=== PATIENT | female | born 1975 | race Caucasian/White ===

== ENCOUNTER 2019-02-20 14:38 | Emergency (ER) | payer MEDICAID ==
[2019-02-20] MEDS ORDERED: Sodium Chloride 0.9% 1,000 ML IV ONE (14:46)
[2019-02-20] MEDS ORDERED: Ondansetron 4 MG/2 ML SDV IVPUSH ONE (14:46)
--- NOTE | 2019-02-20 14:52 | EDM.PDOC ---
ED HPI GENERAL MEDICAL PROBLEM - General Stated Complaint: STOMACH PAIN Time Seen by Provider: 02/20/19 14:43 - History of Present Illness INITIAL COMMENTS - FREE TEXT/NARRATIVE: HISTORY AND PHYSICAL: History of present illness: Patient is a 44-year-old white female presents with right-sided abdominal pain that started yesterday this pain with associated nausea she describes as a cramping type pain occasionally sharp no vaginal discharge or irregular bleeding patient has had no fever chills diarrhea chest pain shortness of breath or other concern she denies trauma Review of systems: As per history of present illness and below otherwise all systems reviewed and negative. Past medical history: As per history of present illness and as reviewed below otherwise noncontributory. Surgical history: As per history of present illness and as reviewed below otherwise noncontributory. Social history: No reported history of drug or alcohol abuse. Family history: As per history of present illness and as reviewed below otherwise noncontributory. Physical exam: HEENT: Atraumatic, normocephalic, pupils reactive, negative for conjunctival pallor or scleral icterus, mucous membranes moist, throat clear, neck supple, nontender, trachea midline. Lungs: Clear to auscultation, breath sounds equal bilaterally, chest nontender. Heart: S1S2, regular, negative for clicks, rubs, or JVD. Abdomen: Soft, tenderness noted right sided nonlocalized no rebound no guarding Negative for masses or hepatosplenomegaly. Negative for costovertebral tenderness. Pelvis: Stable nontender. Genitourinary: Deferred. Rectal: Deferred. Extremities: Atraumatic, negative for cords or calf pain. Neurovascular unremarkable. Neuro: Awake, alert, oriented. Cranial nerves II through XII unremarkable. Cerebellum unremarkable. Motor and sensory unremarkable throughout. Exam nonfocal. Diagnostics: CBC CMP UA CT abdomen and pelvis Therapeutics: Saline 1 L bolus Zofran 4 mg IV Toradol 30 mg Impression: #1 right-sided abdominal pain Definitive disposition and diagnosis as appropriate pending reevaluation and review of above. - Related Data Allergies Allergy/AdvReac Type Severity Reaction Status Date / Time bupropion [From Wellbutrin] Allergy Other Verified 02/20/19 15:22 paroxetine [From Paxil] Allergy Other Verified 02/20/19 15:22 tramadol Allergy Diarrhea Verified 02/20/19 15:22 Home Meds: Home Meds ClonazePAM [KlonoPIN] 2 mg PO DAILY 06/09/18 [History] Cyclobenzaprine [Flexeril] 1 tab PO DAILY PRN 06/09/18 [History] Losartan [Cozaar] 12.5 mg PO DAILY 06/09/18 [History] Metoprolol Succinate [Toprol XL] 25 mg PO DAILY 06/09/18 [History] atorvaSTATin [Lipitor] 40 mg PO DAILY 06/09/18 [History] Hydrocodone/Acetaminophen [Hydrocodon-Acetaminophn 10-325] 1 tab PO Q6H PRN [History] Past Medical History Cardiovascular History: Reports: High Cholesterol, Hypertension, [place] Respiratory History: 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: 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: Neurological History: Reports: Migraines Psychiatric History: Reports: Addiction, Anxiety Endocrine/Metabolic History: Reports: Diabetes, Type II - Infectious Disease History Infectious Disease History: Reports: Hepatitis C - Past Surgical History Cardiovascular Surgical History: Reports: Carotid Stents GI Surgical History: Reports: Cholecystectomy Female Surgical History: Reports: Hysterectomy Social & Family History - Family History Family Medical History: Noncontributory - Caffeine Use Caffeine Use: Reports: Soda ED ROS GENERAL - Review of Systems Review Of Systems: ROS reveals no pertinent complaints other than HPI. ED EXAM, GENERAL - Physical Exam Exam: See Below (See dictation) Course - Vital Signs Last Recorded V/S: Last Vital Signs Temp 36.9 C 02/20/19 15:00 Pulse 86 02/20/19 17:10 Resp 16 02/20/19 17:10 BP 106/54 L 02/20/19 17:10 Pulse Ox 96 02/20/19 17:10 - Orders/Labs/Meds Orders: Active Orders 24 hr Category Date Time Status EKG Documentation Completion [RC] STAT Care 02/20/19 15:12 Active Labs: Laboratory Tests 02/20/19 02/20/19 02/20/19 Range/Units 15:30 15:30 15:55 WBC 7.97 (4.0-11.0) K/uL RBC 5.17 (4.30-5.90) M/uL Hgb 14.7 (12.0-16.0) g/dL Hct 46.9 H (36.0-46.0) % MCV 90.7 (80.0-98.0) fL MCH 28.4 (27.0-32.0) pg MCHC 31.3 (31.0-37.0) g/dL RDW Std Deviation 45.6 (28.0-62.0) fl RDW Coeff of Rita 14 (11.0-15.0) % Plt Count 177 (150-400) K/uL MPV 11.80 (7.40-12.00) fL Neut % (Auto) 60.4 (48.0-80.0) % Lymph % (Auto) 26.0 (16.0-40.0) % [place] % (Auto) 9.2 (0.0-15.0) % Eos % (Auto) 4.3 (0.0-7.0) % Baso % (Auto) 0.1 (0.0-1.5) % Neut # (Auto) 4.8 (1.4-5.7) K/uL Lymph # (Auto) 2.1 (0.6-2.4) K/uL [place] # (Auto) 0.7 (0.0-0.8) K/uL Eos # (Auto) 0.3 (0.0-0.7) K/uL Baso # (Auto) 0.0 (0.0-0.1) K/uL Nucleated RBC % 0.0 /100WBC Nucleated RBCs # 0 K/uL Sodium (136-145) mmol/L Potassium (3.5-5.1) mmol/L Chloride (98-107) mmol/L Carbon Dioxide (21.0-32.0) mmol/L BUN (7.0-18.0) mg/dL Creatinine (0.6-1.0) mg/dL Est Cr Clr Drug Dosing mL/min Estimated GFR (MDRD) ml/min Glucose (74-106) mg/dL Calcium (8.5-10.1) mg/dL Total Bilirubin (0.2-1.0) mg/dL AST (15-37) IU/L ALT (14-63) IU/L Alkaline Phosphatase (46-116) U/L Troponin I (0.000-0.056) ng/mL Total Protein (6.4-8.2) g/dL Albumin (3.4-5.0) g/dL Globulin (2.6-4.0) g/dL Albumin/Globulin Ratio (0.9-1.6) HCG, Qual (NEG) Urine Color YELLOW Urine Appearance CLEAR Urine pH 6.0 (5.0-8.0) Ur Specific [place] <= 1.005 (1.001-1.035) Urine Protein NEGATIVE (NEGATIVE) mg/dL Urine Glucose (UA) NEGATIVE (NEGATIVE) mg/dL Urine Ketones NEGATIVE (NEGATIVE) mg/dL Urine Occult Blood NEGATIVE (NEGATIVE) Urine Nitrite NEGATIVE (NEGATIVE) Urine Bilirubin NEGATIVE (NEGATIVE) Urine Urobilinogen 0.2 (<2.0) EU/dL Ur Leukocyte Esterase NEGATIVE (NEGATIVE) Urine Opiates Screen POSITIVE (NEGATIVE) Ur Oxycodone Screen NEGATIVE (NEGATIVE) Urine Methadone Screen NEGATIVE (NEGATIVE) Ur Barbiturates Screen NEGATIVE (NEGATIVE) Ur Phencyclidine Scrn NEGATIVE (NEGATIVE) Ur Amphetamine Screen NEGATIVE (NEGATIVE) U Methamphetamines Scrn NEGATIVE (NEGATIVE) U Benzodiazepines Scrn NEGATIVE (NEGATIVE) U Cocaine Metab Screen NEGATIVE (NEGATIVE) U Marijuana (THC) Screen NEGATIVE (NEGATIVE) 02/20/19 02/20/19 02/20/19 Range/Units 15:55 15:55 15:55 WBC (4.0-11.0) K/uL RBC (4.30-5.90) M/uL Hgb (12.0-16.0) g/dL Hct (36.0-46.0) % MCV (80.0-98.0) fL MCH (27.0-32.0) pg MCHC (31.0-37.0) g/dL RDW Std Deviation (28.0-62.0) fl RDW Coeff of Rita (11.0-15.0) % Plt Count (150-400) K/uL MPV (7.40-12.00) fL Neut % (Auto) (48.0-80.0) % Lymph % (Auto) (16.0-40.0) % [place] % (Auto) (0.0-15.0) % Eos % (Auto) (0.0-7.0) % Baso % (Auto) (0.0-1.5) % Neut # (Auto) (1.4-5.7) K/uL Lymph # (Auto) (0.6-2.4) K/uL [place] # (Auto) (0.0-0.8) K/uL Eos # (Auto) (0.0-0.7) K/uL Baso # (Auto) (0.0-0.1) K/uL Nucleated RBC % /100WBC Nucleated RBCs # K/uL Sodium 139 (136-145) mmol/L Potassium 4.2 (3.5-5.1) mmol/L Chloride 107 (98-107) mmol/L Carbon Dioxide 23.0 (21.0-32.0) mmol/L BUN 12 (7.0-18.0) mg/dL Creatinine 0.6 (0.6-1.0) mg/dL Est Cr Clr Drug Dosing 113.18 mL/min Estimated GFR (MDRD) > 60.0 ml/min Glucose 107 H (74-106) mg/dL Calcium 8.3 L (8.5-10.1) mg/dL Total Bilirubin 0.2 (0.2-1.0) mg/dL AST 18 (15-37) IU/L ALT 34 (14-63) IU/L Alkaline Phosphatase 136 H (46-116) U/L Troponin I < 0.050 (0.000-0.056) ng/mL Total Protein 6.6 (6.4-8.2) g/dL Albumin 3.2 L (3.4-5.0) g/dL Globulin 3.4 (2.6-4.0) g/dL Albumin/Globulin Ratio 0.9 (0.9-1.6) HCG, Qual NEGATIVE (NEG) Urine Color Urine Appearance Urine pH (5.0-8.0) Ur Specific [place] (1.001-1.035) Urine Protein (NEGATIVE) mg/dL Urine Glucose (UA) (NEGATIVE) mg/dL Urine Ketones (NEGATIVE) mg/dL Urine Occult Blood (NEGATIVE) Urine Nitrite (NEGATIVE) Urine Bilirubin (NEGATIVE) Urine Urobilinogen (<2.0) EU/dL Ur Leukocyte Esterase (NEGATIVE) Urine Opiates Screen (NEGATIVE) Ur Oxycodone Screen (NEGATIVE) Urine Methadone Screen (NEGATIVE) Ur Barbiturates Screen (NEGATIVE) Ur Phencyclidine Scrn (NEGATIVE) Ur Amphetamine Screen (NEGATIVE) U Methamphetamines Scrn (NEGATIVE) U Benzodiazepines Scrn (NEGATIVE) U Cocaine Metab Screen (NEGATIVE) U Marijuana (THC) Screen (NEGATIVE) Meds: Medications Discontinued Medications Generic Name Dose Route Start Last Admin Trade Name Gurmeet PRN Reason Stop Dose Admin Sodium Chloride 1,000 mls @ 999 mls/hr 02/20/19 14:46 02/20/19 16:08 Normal Saline IV 02/20/19 15:46 999 mls/hr STAT ONE Administration Ketorolac Tromethamine 30 mg 02/20/19 15:12 02/20/19 16:08 Toradol IVPUSH 02/20/19 15:13 30 mg ONETIME ONE Administration Ondansetron HCl 4 mg 02/20/19 14:46 02/20/19 16:08 Zofran IVPUSH 02/20/19 14:47 4 mg ONETIME ONE Administration Departure - Departure Time of Disposition: 17:58 Disposition: Home, Self-Care 01 Condition: Good Clinical Impression: Abdominal pain - Discharge Information Referrals: PCP,Unknown [Primary Care Provider] - Additional Instructions: The following information is given to patients seen in the emergency department who are being discharged to home. This information is to outline your options for follow-up care. We provide all patients seen in our emergency department with a follow-up referral. The need for follow-up, as well as the timing and circumstances, are variable depending upon the specifics of your emergency department visit. If you don't have a primary care physician on staff, we will provide you with a referral. We always advise you to contact your personal physician following an emergency department visit to inform them of the circumstance of the visit and for follow-up with them and/or the need for any referrals to a consulting specialist. The emergency department will also refer you to a specialist when appropriate. This referral assures that you have the opportunity for followup care with a specialist. All of these measure are taken in an effort to provide you with optimal care, which includes your followup. Under all circumstances we always encourage you to contact your private physician who remains a resource for coordinating your care. When calling for followup care, please make the office aware that this follow-up is from your recent emergency room visit. If for any reason you are refused follow-up, please contact the [facility] emergency department at and asked to speak to the emergency department charge nurse. [facility] [address] [place] [id number] Protonix as prescribed follow-up primary care above return as needed as discussed - My Orders Last 24 Hours: My Active Orders 02/20/19 15:12 EKG Documentation Completion [RC] STAT - Assessment/Plan Last 24 Hours: My Active Orders 02/20/19 15:12 EKG Documentation Completion [RC] STAT
[2019-02-20] MEDS ORDERED: Ketorolac 30 MG/ML SDV IVPUSH ONE (15:12)
[2019-02-20 16:27] LABS: CHLORIDE,CL 107 mmol/L (98-107); SODIUM,NA 139 mmol/L (136-145)
--- NOTE | 2019-02-20 17:24 | CR ---
HISTORY: Chest pain. FINDINGS: Single AP view of the chest is provided. Comparison is made to previous study dated 06/09/2018. The lungs are clear and there is no evidence for pleural effusion or pneumothorax. Cardiac silhouette size is within normal limits. Dictated by Henry Recio MD @ Feb 20 2019 5:21PM Signed by Dr. Henry Recio @ Feb 20 2019 5:22PM
--- NOTE | 2019-02-20 17:34 | CT ---
INDICATION: Nausea and vomiting with right lower quadrant pain. COMPARISON: [address] TECHNIQUE: Noncontrast images. FINDINGS: Coronary atherosclerotic calcification. Cholecystectomy clips. Multiple nonobstructing calculi in each kidney. Largest at the lower pole on the right roughly 5.5 mm. Majority are 3-4 mm. No obstruction. No mass or cyst. Reactive retroperitoneal lymph nodes along the celiac and gastrohepatic stations. Reactive appearing portacaval lymph nodes. Multiple diverticula of the sigmoid without inflammation. High attenuation within normal caliber appendix with slightly high-riding cecum. No dilatation or inflammation of small bowel. No air or fluid in the peritoneum. Abdominal wall is intact. No inguinal hernias. Urinary bladder is decompressed. No blastic or lytic bone lesion. IMPRESSION: 1. Multiple nonobstructing chronic caliceal nephrolithiasis bilaterally. 2. Chronic sigmoid diverticulosis. 3. Cholecystectomy. Please note that all CT scans at this facility use dose modulation, iterative reconstruction, and/or weight-based dosing when appropriate to reduce radiation dose to as low as reasonably achievable. Dictated by Alex Parker MD @ Feb 20 2019 5:28PM Signed by Dr. Alex Parker @ Feb 20 2019 5:32PM
== END 2019-02-20 18:10 | disposition home or self-care (01) ==
LOC: MW.ED 14:38
DX: R10.31 Right lower quadrant pain (principal); E78.00 Pure hypercholesterolemia, unspecified; I10 Essential (primary) hypertension; I25.2 Old myocardial infarction; F41.9 Anxiety disorder, unspecified; E11.9 Type 2 diabetes mellitus without complications; Z88.8 Allergy status to other drugs, medicaments and biological substances; Z79.899 Other long term (current) drug therapy
CPT/HCPCS: 36415; 71045; 74176; 80053; 80305; 81003; 84484; 84703; 85025; 93005; 96361; 96374; 96375; 99284; J1885; J2405; J7040; 99283

== ENCOUNTER 2019-03-23 21:16 | Emergency (ER) | payer MEDICAID ==
--- NOTE | 2019-03-23 21:23 | EDM.PDOC ---
ED HPI GENERAL MEDICAL PROBLEM - General Chief Complaint: General Stated Complaint: MED. CANALES Time Seen by Provider: 03/23/19 21:18 Source of Information: Reports: Patient History Limitations: Reports: No Limitations - History of Present Illness INITIAL COMMENTS - FREE TEXT/NARRATIVE: HISTORY AND PHYSICAL: History of present illness: Patient is a 44-year-old female who presents to the emergency room for medical clearance by law enforcement. Patient offers no current complaints or concerns. Patient denies any fever, chills, headache, change in vision, syncope or near syncope. Denies any chest pain, back pain, shortness of breath or cough. Denies any abdominal pain, nausea, vomiting, diarrhea, constipation or dysuria. Has not noted any blood in urine or stool. Patient has been eating and drinking appropriately. Review of systems: As per history of present illness and below otherwise all systems reviewed and negative. Past medical history: As per history of present illness and as reviewed below otherwise noncontributory. Surgical history: As per history of present illness and as reviewed below otherwise noncontributory. Social history: See social history for further information Family history: As per history of present illness and as reviewed below otherwise noncontributory. Physical exam: General: Well-developed and well-nourished 44-year-old female. Alert and oriented. Nontoxic appearing and in no acute distress. HEENT: Atraumatic, normocephalic, pupils equal and reactive bilaterally, negative for conjunctival pallor or scleral icterus, mucous membranes moist, neck supple, nontender, trachea midline. No drooling or trismus noted. No meningeal signs. No hot potato voice noted. Lungs: Clear to auscultation, breath sounds equal bilaterally, chest nontender. Heart: S1S2, regular rate and rhythm without overt murmur Abdomen: Soft, nondistended, nontender. Skin: Intact, warm, dry. No lesions or rashes noted. Extremities: Atraumatic, moves all extremities per self without difficulty or deficits, negative for cords or calf pain. Neurovascular unremarkable. Neuro: Awake, alert, oriented. Cranial nerves II through XII unremarkable. Cerebellum unremarkable. Motor and sensory unremarkable throughout. Exam nonfocal. Notes: Patient states she does have a cardiac history and has seen Dr. Duggan for routine check up which included an EKG on 03/05/19. I was able to view this EKG which appeared to have no acute findings. Patient's vital signs are stable. She declines the need for any diagnostics. We'll discharged into the custody of law enforcement. Supportive care measures were reviewed and discussed. Voices understanding and is agreeable to plan of care. Denies any further questions or concerns at this time. Diagnostics: None Therapeutics: None Prescription: None Impression: Encounter for medical screening exam Plan: 1. Follow-up with your primary care provider as we discussed. 2. Return to the ED as needed and as discussed. Definitive disposition and diagnosis as appropriate pending reevaluation and review of above. - Related Data Allergies Allergy/AdvReac Type Severity Reaction Status Date / Time bupropion [From Wellbutrin] Allergy Other Verified 03/23/19 21:19 paroxetine [From Paxil] Allergy Other Verified 03/23/19 21:19 tramadol Allergy Diarrhea Verified 03/23/19 21:19 Home Meds: Home Meds ClonazePAM [KlonoPIN] 2 mg PO DAILY 06/09/18 [History] Cyclobenzaprine [Flexeril] 1 tab PO DAILY PRN 06/09/18 [History] Losartan [Cozaar] 12.5 mg PO DAILY 06/09/18 [History] Metoprolol Succinate [Toprol XL] 25 mg PO DAILY 06/09/18 [History] atorvaSTATin [Lipitor] 40 mg PO DAILY 06/09/18 [History] Hydrocodone/Acetaminophen [Hydrocodon-Acetaminophn 10-325] 1 tab PO Q6H PRN [History] Clopidogrel [Plavix] 75 mg PO 03/23/19 [History] Past Medical History Cardiovascular History: Reports: High Cholesterol, Hypertension, [place] 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: Neurological History: Reports: Migraines Psychiatric History: Reports: Addiction, Anxiety Endocrine/Metabolic History: Reports: Diabetes, Type II - Infectious Disease History Infectious Disease History: Reports: Hepatitis C - Past Surgical History Cardiovascular Surgical History: Reports: Carotid Stents GI Surgical History: Reports: Cholecystectomy Female Surgical History: Reports: Hysterectomy Social & Family History - Family History Family Medical History: Noncontributory - Caffeine Use Caffeine Use: Reports: Soda ED ROS GENERAL - Review of Systems Review Of Systems: ROS reveals no pertinent complaints other than HPI. ED EXAM, GENERAL - Physical Exam Exam: See Below (See dictation) Course - Vital Signs Last Recorded V/S: Last Vital Signs Temp 97.6 F 03/23/19 21:20 Pulse 89 03/23/19 21:20 Resp 18 03/23/19 21:20 BP 138/85 03/23/19 21:20 Pulse Ox 97 03/23/19 21:20 Departure - Departure Time of Disposition: 21:25 Disposition: Home, Self-Care 01 Clinical Impression: Encounter for medical screening examination - Discharge Information Referrals: PCP,None [Primary Care Provider] - Forms: ED Department Discharge Additional Instructions: The following information is given to patients seen in the emergency department who are being discharged to home. This information is to outline your options for follow-up care. We provide all patients seen in our emergency department with a follow-up referral. The need for follow-up, as well as the timing and circumstances, are variable depending upon the specifics of your emergency department visit. If you don't have a primary care physician on staff, we will provide you with a referral. We always advise you to contact your personal physician following an emergency department visit to inform them of the circumstance of the visit and for follow-up with them and/or the need for any referrals to a consulting specialist. The emergency department will also refer you to a specialist when appropriate. This referral assures that you have the opportunity for follow-up care with a specialist. All of these measure are taken in an effort to provide you with optimal care, which includes your follow-up. Under all circumstances we always encourage you to contact your private physician who remains a resource for coordinating your care. When calling for follow-up care, please make the office aware that this follow-up is from your recent emergency room visit. If for any reason you are refused follow-up, please contact the [facility] Emergency Department at and asked to speak to the emergency department charge nurse. [facility] [address] [place] [id number] [id number] 1. Follow-up with your primary care provider as we discussed. 2. Return to the ED as needed and as discussed.
== END 2019-03-23 21:34 | disposition home or self-care (01) ==
LOC: MW.ED 21:16
DX: Z13.9 Encounter for screening, unspecified (principal); E78.00 Pure hypercholesterolemia, unspecified; I10 Essential (primary) hypertension; I25.2 Old myocardial infarction; E11.9 Type 2 diabetes mellitus without complications; Z88.8 Allergy status to other drugs, medicaments and biological substances; Z88.5 Allergy status to narcotic agent; Z79.899 Other long term (current) drug therapy; Z79.02 Long term (current) use of antithrombotics/antiplatelets
CPT/HCPCS: 99283

== ENCOUNTER 2019-04-15 07:24 | Day surgery (SDC) | payer MEDICAID ==
[~2019-04-15 07:24] MED LIST: Lactated Ringers 1,000 ML IV SCH; Midazolam 1 MG/ML 2 ML SDV ONE; Ondansetron 4 MG/2 ML SDV ONE; Propofol 200 MG/20 ML SDV ONE; Sodium Chloride 0.9% 10 ML SDV IV PRN; Sodium Chloride 0.9% 10 ML Syringe FLUSH PRN; Sodium Chloride 0.9% 2.5 ML Syringe FLUSH PRN; ceFAZolin 2 GM in Premix Bag 1 BAG IV ONE; fentaNYL 100 MCG/2 ML SDV ONE
--- NOTE | 2019-04-15 08:28 | PCM.PREANE ---
Preanesthetic Assessment - Anesthesia/Transfusion/Family Hx Anesthesia History: Prior Anesthesia Without Reaction Family History of Anesthesia Reaction: No Transfusion History: No Prior Transfusion(s) - Review of Systems General: No Symptoms Pulmonary: No Symptoms Cardiovascular: No Symptoms Gastrointestinal: No Symptoms Neurological: No Symptoms Other: Reports: None - Physical Assessment NPO Status Date: 04/14/19 NPO Status Time: 23:00 Vital Signs: Last Vital Signs Temp 97.2 F 04/15/19 07:53 Pulse 84 04/15/19 07:53 Resp 16 04/15/19 07:53 BP 128/73 04/15/19 07:53 Pulse Ox 97 04/15/19 07:53 Height: 5 ft 6 in Weight: 97.976 kg ASA Class: 3 Mental Status: Alert & Oriented x3 Airway Class: Mallampati = 2 Dentition: Reports: Partial (lower), Edentulous (uper) ROM/Head Extension: Full Lungs: Clear to Auscultation, Normal Respiratory Effort Cardiovascular: Regular Rate, Regular Rhythm - Allergies Allergies/Adverse Reactions: Allergies Allergy/AdvReac Type Severity Reaction Status Date / Time adhesive tape Allergy Blisters Verified 04/12/19 11:36 bupropion [From Wellbutrin] Allergy mood swings Verified 04/12/19 11:45 paroxetine [From Paxil] Allergy mood swings Verified 04/12/19 11:45 tramadol Allergy Diarrhea Verified 04/12/19 11:45 - Blood Blood Available: No - Anesthesia Plan Pre-Op Medication Ordered: None - Acknowledgements Anesthesia Type Planned: General Anesthesia Pt an Appropriate Candidate for the Planned Anesthesia: Yes Alternatives and Risks of Anesthesia Discussed w Pt/Guardian: Yes Pt/Guardian Understands and Agrees with Anesthesia Plan: Yes Additional Comments: PMH cad with AL in 2012, has 3 stents in RCA and Cx, on plavix, last dose 4 days ago DM2 diet controlled chrons- in remission- on mo meds copd/asthma- used inhaler yest for sx, no hosp visits or steroid use in 10 yrs smoker hep C - untreated- set up for rx in [place] htn s/p hyst hx of stimulant use disorder in sustained remission for 18 months PLAN: tiva or ga/lma PreAnesthesia Questionnaire HEENT History: Reports: None Cardiovascular History: Reports: High Cholesterol, Hypertension, AL Respiratory History: Reports: Asthma, COPD Gastrointestinal History: Reports: Hepatitis Other Gastrointestinal History: hepatitis C, states is going to [place] on to see a doctor about treatment for Hep C Genitourinary History: Reports: Renal Calculus 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: Musculoskeletal History: Reports: Fracture Other Musculoskeletal History: hx fx shoulder Neurological History: Reports: Migraines Psychiatric History: Reports: Addiction, Anxiety, Depression Endocrine/Metabolic History: Reports: Diabetes, Type II, Obesity/BMI 30+ Other Endocrine/Metabolic History: diet controlled type II diabetes Hematologic History: Reports: None Immunologic History: Reports: None Oncologic (Cancer) History: Reports: None Dermatologic History: Reports: None - Infectious Disease History Infectious Disease History: Reports: Hepatitis C - Past Surgical History Head Surgeries/Procedures: Reports: None HEENT Surgical History: Reports: None Cardiovascular Surgical History: Reports: Carotid Stents Respiratory Surgical History: Reports: None GI Surgical History: Reports: Cholecystectomy Female Surgical History: Reports: Breast Biopsy, Hysterectomy Endocrine Surgical History: Reports: None Neurological Surgical History: Reports: None Musculoskeletal Surgical History: Reports: None Oncologic Surgical History: Reports: None, Lumpectomy Dermatological Surgical History: Reports: None - SUBSTANCE USE Smoking Status *Q: Current Every Day Smoker Tobacco Use Within Last Twelve Months: Cigarettes Recreational Drug Use History: Yes Recreational Drug Type: Reports: Methamphetamine - HOME MEDS Home Medications: Home Meds ClonazePAM [KlonoPIN] 2 mg PO DAILY PRN 06/09/18 [History] Losartan [Cozaar] 25 mg PO DAILY 06/09/18 [History] atorvaSTATin [Lipitor] 40 mg PO DAILY 06/09/18 [History] Clopidogrel [Plavix] 75 mg PO DAILY 03/23/19 [History] Albuterol Sulfate [Albuterol Sulfate Hfa] 1 puff INH Q4H PRN 04/12/19 [History] Aspirin [Halfprin] 81 mg PO DAILY 04/12/19 [History] Budesonide/Formoterol Fumarate [Symbicort 80-4.5 Mcg Inhaler] 2 puff INH BID 04/22 [History] Carvedilol 3.125 mg PO BID 04/12/19 [History] Nitroglycerin 0.4 mg SL ASDIRECTED PRN 04/12/19 [History] traZODone HCl [Trazodone HCl] 2 tab PO BEDTIME 04/12/19 [History] - CURRENT (IN HOUSE) MEDS Current Meds: Current Medications Lactated Ringer's (Ringers, Lactated) 1,000 mls @ 125 mls/hr IV ASDIRECTED [place] Sodium Chloride (Saline Flush) 10 ml FLUSH ASDIRECTED PRN PRN Reason: Keep Vein Open Sodium Chloride (Saline Flush) 2.5 ml FLUSH ASDIRECTED PRN PRN Reason: Keep Vein Open Sodium Chloride (Normal Saline) 10 ml IV ASDIRECTED PRN PRN Reason: IV Use Discontinued Medications Fentanyl (Sublimaze) Confirm Administered Dose 100 mcg .ROUTE .STK-MED ONE Stop: 04/15/19 07:18 Cefazolin Sodium/Dextrose 2 gm (/ Premix) 50 mls @ 100 mls/hr IV ONETIME ONE Stop: 04/14/19 09:54 Lidocaine HCl (Xylocaine-Mpf 1%) Confirm Administered Dose 5 ml .ROUTE .STK-MED ONE Stop: 04/15/19 07:18 Midazolam HCl (Versed 1 Mg/Ml) Confirm Administered Dose 2 mg .ROUTE .STK-MED ONE Stop: 04/15/19 07:18 Ondansetron HCl (Zofran) Confirm Administered Dose 4 mg .ROUTE .STK-MED ONE Stop: 04/15/19 07:18 Propofol (Diprivan 20 Ml) Confirm Administered Dose 200 mg .ROUTE .STK-MED ONE Stop: 04/15/19 07:18
[2019-04-15] MEDS ORDERED: Sodium Chloride 0.9% 40 ML ONE (09:41)
[2019-04-15] MEDS ORDERED: ceFAZolin 1 GM Vial ONE (09:41)
[2019-04-15] MEDS ORDERED: Lidocaine 1% 20 ML MDV ONE (09:44)
[2019-04-15] MEDS ORDERED: Octyl 2-Cyanoacrylate 1 Tube ONE (09:44)
[2019-04-15] MEDS ORDERED: fentaNYL 100 MCG/2 ML SDV ONE (09:58)
[2019-04-15] MEDS ORDERED: Propofol 200 MG/20 ML SDV ONE ×2 (10:01→10:31)
--- NOTE | 2019-04-15 11:00 | PCM.OPNOTE ---
- General Post-Op/Procedure Note Date of Surgery/Procedure: 04/15/19 Operative Procedure(s): Excision of right abdominal wall mass, right breast mass and neck skin tags Findings: Right abdominal wall mass, right breast mass and removed 14 skin tags. Pre Op Diagnosis: Right abdominal wall mass, right breast mass, neck skin tags Post-Op Diagnosis: Same Anesthesia Technique: MAC Primary Surgeon: Diana Cedeño Fluid Replacement, Intraop: 1,200 EBL in mLs: 10 Complications: None Condition: Good
[2019-04-15] MEDS ORDERED: Nitroglycerin 0.4 MG Tab.SL SL PRN (11:17)
[2019-04-15] MEDS ORDERED: Aspirin 81 MG Tab.Chew PO STA (11:20)
--- NOTE | 2019-04-15 12:32 | PCM.SN ---
- Free Text/Narrative Note: arrived in PACU with chest pressure like the pain with her angina, also quite anxious. EKG normal except brdycardia of 58. No ischemic changes. Given one sl nitro after ekg, pain now gone but also anxiety much resolved. Will keep on EKG monitoor and check troponin at time of arrival to PACU and 3 hours later. Surgeon and notified.
[2019-04-15] MEDS ORDERED: ClonazePAM 0.5 MG Tab PO ONE (12:35)
--- NOTE | 2019-04-15 14:19 | PCM.POSTAN ---
POST ANESTHESIA ASSESSMENT - MENTAL STATUS Mental Status: Alert, Oriented - VITAL SIGNS Vital Signs: Last Vital Signs Temp 97.2 F 04/15/19 10:58 Pulse 76 04/15/19 14:10 Resp 17 04/15/19 14:10 BP 116/74 04/15/19 14:10 Pulse Ox 94 L 04/15/19 14:10 - RESPIRATORY Respiratory Status: Respiratory Rate WNL, Airway Patent, O2 Saturation Stable - CARDIOVASCULAR CV Status: Pulse Rate WNL, Blood Pressure Stable - GASTROINTESTINAL GI Status: No Symptoms - POST OP HYDRATION Hydration Status: Adequate & Stable - OBSERVATIONS Free Text/Narrative:: fully recovered from anesthesia, asymptomatic. first troponin normal. next troponin to be drawn in 15 minutes. If negative may be discharged to home. To restart plavix tomorrow per Dr eCdeño.
--- NOTE | 2019-04-15 15:24 | PCM.SN ---
- Free Text/Narrative Note: 15:20: Troponin 3hr level normal. Will move to day surgery for discharge. No chest pain or dyspnea. Doing well.
--- NOTE | 2019-04-15 15:34 | PCM48HPAN ---
Post Anesthesia Note - EVALUATION WITHIN 48HRS OF ANESTHETIC Vital Signs in Normal Range: Yes Patient Participated in Evaluation: Yes Respiratory Function Stable: Yes Airway Patent: Yes Cardiovascular Function Stable: Yes Hydration Status Stable: Yes Pain Control Satisfactory: Yes Nausea and Vomiting Control Satisfactory: Yes Mental Status Recovered: Yes Vital Signs: Last Vital Signs Temp 36.2 C 04/15/19 10:58 Pulse 70 04/15/19 15:20 Resp 20 04/15/19 15:20 BP 110/60 04/15/19 15:20 Pulse Ox 95 04/15/19 15:20 - COMMENTS/OBSERVATIONS Free Text/Narrative:: Stable. No chest pain or other issues. Ready for discharge.
--- NOTE | 2019-04-16 13:18 | OR ---
SURGEON: DIANA CEDEÑO MD DATE OF PROCEDURE: 04/15/2019 PREOPERATIVE DIAGNOSES: 1. Right breast skin lesion. 2. Right abdominal mass. 3. Anterior neck skin tags. POSTOPERATIVE DIAGNOSES: 1. Right breast skin lesion. 2. Right abdominal mass. 3. Anterior neck skin tags. PROCEDURES PERFORMED: 1. Excision, right breast skin lesion. 2. Excision, right abdominal wall mass. 3. Excision, skin tags x14. PRIMARY SURGEON: Diana Cedeño MD. HOMICIDE DETECTIVE: computer lab assistant: Howie Ruiz MD, optometrist president/practice owner. ANESTHESIA: MAC. FLUIDS: See anesthesia record. ESTIMATED BLOOD LOSS: 5 mL. FINDINGS: 1.5 cm right abdominal wall mass, 1 cm right breast skin lesion, skin tags x14. COMPLICATIONS: None. INDICATIONS: The patient is a 44-year-old female who complains of chronic pain from a right breast mass and right abdominal wall mass. She also has multiple skin tags of her neck. After workup, it was determined that we would perform an excision of the right abdominal mass and the right breast skin lesion as well as excise the skin tags on her neck. I explained the procedures; expected perioperative course; and risks including bleeding, infection, or damage to surrounding structures. She verbalized understanding and wishes to proceed. PROCEDURE IN DETAIL: The patient was brought into the OR and placed on the OR table in supine position. A time-out was completed verifying the patient's name, age, date of , allergies, and procedure to be performed. Monitored anesthesia care was induced. After adequate sedation was achieved, her right breast and right abdominal wall were prepped and draped in usual standard fashion. I started the case by focusing my attention on the right abdominal wall mass. I anesthetized the area with 1% lidocaine plain. A 15 blade was used to make a 4 cm incision over the top of the right abdominal wall mass. Cautery was used to dissect down through the level of the subcutaneous fat. I digitally palpated a hard nodule. This was grasped with an Allis clamp and elevated. Using cautery, I dissected around the mass. The mass was torn into slightly revealing a cystic structure containing what appeared to be old blood on the inside. Once the mass was removed from the surrounding tissues, it was placed on the back table and measured. It was circular and incised and measured 1.5 cm. It was sent to Pathology, labeled as right abdominal wall mass. The wound was irrigated with normal saline and electrocautery was used to achieve hemostasis. I packed the wound with a moistened gauze and turned my attention to the right breast. An elliptical skin incision was made over the top of the patient's right breast skin lesion. Cautery was then used to dissect down into the level of the subcutaneous fat. I then grasped the ellipse of skin with an Allis and elevated it. The patient appeared to have a cystic structure just underneath the skin. This was dissected out using sharp dissection and electrocautery. Once it was completely removed from the surrounding tissues, it was placed on the back table and measured. It was 1 cm in diameter. I turned my attention back to the wound. It was irrigated with normal saline and hemostasis was achieved with electrocautery. I then closed both wounds with interrupted 3-0 Vicryl sutures in the subcutaneous fat layer. The skin was closed with running 4-0 Monocryl sutures. Dermabond and sterile dressings were applied. We then turned our attention to the neck. The previous drapes were taken down, and we prepped and draped the neck in sterile fashion. The skin tags were elevated using Adson tweezers and sharply excised at the level of the skin using a 15 blade. Pinpoint electrocautery was then used to achieve hemostasis. The wounds were then dressed in a combination of Steri-Strips and sterile bandages. Fourteen skin tags were removed in total. These were not sent to Pathology. The patient tolerated the procedure well. All counts were complete and correct at the end of the case. She was transferred to the PACU in stable condition. MERCEDES MÉNDEZ /[id number]
== END 2019-04-15 15:35 | disposition home or self-care (01) ==
LOC: MW.SDS 07:24
PROVIDERS: ATTEND Surgery
DX: N64.1 Fat necrosis of breast (principal); K65.4 Sclerosing mesenteritis; L91.8 Other hypertrophic disorders of the skin; F41.9 Anxiety disorder, unspecified; I25.10 Atherosclerotic heart disease of native coronary artery without angina pectoris; J44.9 Chronic obstructive pulmonary disease, unspecified; F17.210 Nicotine dependence, cigarettes, uncomplicated; E78.5 Hyperlipidemia, unspecified; I10 Essential (primary) hypertension; F32.9 Major depressive disorder, single episode, unspecified; E78.00 Pure hypercholesterolemia, unspecified; G43.909 Migraine, unspecified, not intractable, without status migrainosus; E11.9 Type 2 diabetes mellitus without complications; E66.9 Obesity, unspecified; Z68.34 Body mass index [BMI] 34.0-34.9, adult; Z88.5 Allergy status to narcotic agent; Z91.048 Other nonmedicinal substance allergy status; Z88.8 Allergy status to other drugs, medicaments and biological substances; Z79.899 Other long term (current) drug therapy; Z79.82 Long term (current) use of aspirin
CPT/HCPCS: 11200; 19120; 22902; 36415; 84484; 88305; 93005; A9270; J0690; J2001; J2250; J2405; J2704; J3010; J7120; 00400